=== PATIENT | female | born 2000 | race African-American/Black ===

== ENCOUNTER 2019-05-03 17:19 | Emergency (ER) | payer MEDICAID ==
[2019-05-03 17:56] LABS: Bilirubin Negative (Negative); Blood, Urine Large (Negative); Glucose, Urine (Dipstick) Negative (Negative); Leukocyte Moderate (Negative); Nitrite Positive (Negative); Protein, Urine (Dipstick) 100 mg/dL (Neg-Trace)
[2019-05-03 17:59] LABS: Clarity Turbid (Clear); Pregnancy Test - Urine (BHCG) Negative (Negative); Pregu Control Background? CLEAR/WHITE (CLR/WHITE); Pregu Control Bar Appear? YES (CONTROL BAR)
[2019-05-03 18:02] LABS: Bacteria/HPF 4+ HPF (None Seen); Squamous Epithelial 0-3 HPF (0-3); WBC/HPF Greater Than 50 HPF (0-3)
[2019-05-03] MEDS ORDERED: Ketorolac Tromethamine 30 MG/ML VIAL ONE (19:49)
== END 2019-05-03 20:14 | disposition home or self-care (01) ==
LOC: ERS 17:19
DX: N12 Tubulo-interstitial nephritis, not specified as acute or chronic (principal); F17.210 Nicotine dependence, cigarettes, uncomplicated
CPT/HCPCS: 81003; 81015; 81025; 87077; 87086; 87186; 99284; J1885

== ENCOUNTER 2020-06-10 14:08 | Day surgery (SDC) | payer SELFPAY ==
[2020-06-10] MEDS ORDERED: hydrALAZINE 20 MG/ML VIAL SLOW IVP PRN (16:32)
--- NOTE | 2020-06-10 17:41 | ULT ---
OB ULTRASOUND: 06/10/20 HISTORY: Size and dates. Real time imaging of the pelvis shows a single viable intrauterine in the cephalic presenta tion. The placenta is posterior in location. Amniotic fluid is adequate for this stage of . The amniotic fluid index is 13.1. The heart rate is 140 beats per minute. measurements ar e as follows: BPD 6.0 cm 24 weeks, 4 days Head circumference 22.3 cm 24 weeks, 2 days Abdominal circumference 20.4 cm 25 weeks, 0 days Femur length 4.5 cm 24 weeks, 5 days anatomy was not assessed on this examination. The cervical canal length is 4.1 cm. IMPRESSION: 1. Single viable intrauterine in cephalic presentation. Overall measurements correspon ding to a gestational age of 24 weeks, 3 days. Estimated date of delivery 09/27/20. 2. Placenta which is posterior in location. POS: ALLY
--- NOTE | 2020-06-10 18:46 | PRG ---
DATE OF SERVICE: 06/10/2020 PRIMARY OB: None. CHIEF COMPLAINT: Decreased movement. HISTORY OF PRESENT ILLNESS: The patient is a 19-year-old female, presenting with decreased movement. She has had no care, but was told that she has a confirmed from a test in February. The patient denies any medical problems, any fever, recent illness, cough, chest pain, shortness of breath, nausea, vomiting, diarrhea, constipation, hip problems, knee problems, muscle weakness. She denies change in discharge, vaginal bleeding, leakage of fluid, urinary urgency or frequency. PAST MEDICAL HISTORY: Negative. PAST SURGICAL HISTORY: Negative. SOCIAL HISTORY: Denies drug, alcohol, or tobacco use. ALLERGIES: NO KNOWN DRUG ALLERGIES. MEDICATIONS: None. OB LABS: Unavailable. REVIEW OF SYSTEMS: Per HPI. PHYSICAL EXAMINATION: VITAL SIGNS: Blood pressure 113/73, heart rate of 91, respiratory rate of 20, saturating 100% on room air, temperature 98.4. GENERAL: She appears to be in no acute distress. She is alert and oriented, cooperative and pleasant to interact with. HEENT: Head is normocephalic and atraumatic. LUNGS: Clear to auscultation bilaterally. HEART: Has regular rate and rhythm. ABDOMEN: Gravid, soft, nontender. EXTREMITIES: Nontender, nonedematous. Fundal height is 24-25 cm. During our physical exam, fetus had multiple large movements with kicks and punches visibly and palpated on exam. EXTREMITIES: Nontender, nonedematous. GENITOURINARY: Deferred. heart tracing shows the fetus with a baseline in the 150s, difficult to trace. Ultrasound demonstrates a fetus with an estimated gestational age of 24 weeks and 3 days. Placenta is posterior. Amniotic fluid index is 13.1 and cervical length is 4.1 cm. ASSESSMENT AND PLAN: The patient is a 19-year-old female with an intrauterine based on today's ultrasound of 24 weeks and 3 days with estimated due date of 09/27/2020, who presented for decreased movement. Fetus has exhibited appropriate movement during evaluation with kicks and punches and appears to have normal HUNTER and the tracing that we could get showed appropriate heart tracing. The patient has been counseled with her mom on various OB options here in the community that the patient can choose from and has been given appropriate contact information. The patient is being discharged home with reassurance. Job ID: [id number]
[2020-06-11] MEDS ORDERED: FLU VACC QS2020-21(6MOS UP)/PF 60 MCG/0.5 ML SYRINGE IM ONE (09:00)
== END 2020-06-10 16:05 | disposition home or self-care (01) ==
LOC: L&D/OP 14:08
PROVIDERS: ATTEND Obstetrics & Gynecology
DX: O36.8120 Decreased fetal movements, second trimester, not applicable or unspecified (principal); Z3A.24 24 weeks gestation of pregnancy
CPT/HCPCS: 76815; 99281